=== PATIENT | female | born 1960 | race Caucasian/White ===

== ENCOUNTER 2017-12-26 13:30 | Inpatient (IN) | payer BC ==
[2018-01-07] MEDS ORDERED: METOCLOPRAMIDE 10 MG TABLET PO ONE (06:00)
[2018-01-07] MEDS ORDERED: MECLIZINE 25 MG TABLET PO ONE (06:00)
[2018-01-07] MEDS ORDERED: FAMOTIDINE 20MG TABLET PO ONE (06:00)
[2018-01-07] MEDS ORDERED: CELECOXIB 100 MG CAPSULE PO ONE (06:00)
[2018-01-07] MEDS ORDERED: CEFAZOLIN 2 Gram 2 GM/50 ML BAG IVPB ONE (06:00)
[2018-01-07] MEDS ORDERED: VANCOMYCIN HCL 1,000 MG in DEXTROSE 5 % IN WATER 250 ML IVPB ONE ×2 (06:00)
[2018-01-07 08:47] LABS: ABO GROUP O; ANTIBODY SCREEN NEGATIVE (NEGATIVE); RH TYPE POSITIVE
[2018-01-07] MEDS ORDERED: AL HYDROX/MAG HYDROX 30ML UD PO PRN (12:26)
[2018-01-07] MEDS ORDERED: DIPHENHYDRAMINE HCL 25 MG CAPSULE PO PRN (12:26)
[2018-01-07] MEDS ORDERED: ONDANSETRON HCL IV 4 MG/2 ML VIAL IVP PRN (12:26)
[2018-01-07] MEDS ORDERED: ACETAMINOPHEN W/ CODEINE 300MG/60MG TABLET PO PRN (12:26)
[2018-01-07] MEDS ORDERED: MAGNESIUM HYDROXIDE 30 ML UDC PO PRN (12:26)
[2018-01-07] MEDS ORDERED: TRAMADOL HCL 50 MG TABLET PO PRN (12:26)
[2018-01-07] MEDS ORDERED: KETOROLAC 30 MG/ML VIAL IVP PRN ×2 (12:26)
[2018-01-07] MEDS ORDERED: ZOLPIDEM TARTRATE 5 MG TABLET PO PRN (12:26)
[2018-01-07] MEDS ORDERED: HYDROMORPHONE HCL 2 MG/ML VIAL IM PRN (12:26)
[2018-01-07] MEDS ORDERED: HYDROCODONE/APAP 10/325 TABLET PO PRN ×2 (12:26)
[2018-01-07] MEDS ORDERED: ACETAMINOPHEN 325 MG TAB PO PRN (12:26)
[2018-01-07] MEDS ORDERED: NALOXONE 0.4 MG/1 ML VIAL IVP PRN (12:26)
[2018-01-07] MEDS ORDERED: BISACODYL 10 MG SUPP RC PRN (12:26)
[2018-01-07] MEDS ORDERED: LIDOCAINE 2% MDV (20MG/ML) 20ML VIAL IV ONE (14:00)
[2018-01-07] MEDS ORDERED: ONDANSETRON HCL IV 4 MG/2 ML VIAL IVP ONE (14:00)
[2018-01-07] MEDS ORDERED: HYDROMORPHONE PF 1MG/ML **AMPULE IV ONE ×2 (14:00→15:02)
[2018-01-07] MEDS ORDERED: MIDAZOLAM HCL 2MG/2ML VIAL IV ONE (14:00)
[2018-01-07] MEDS ORDERED: PROPOFOL 10 MG/ML VIAL IV ONE (14:00)
[2018-01-07] MEDS ORDERED: FENTANYL PF 100MCG/2ML VIAL IV ONE (14:00)
[2018-01-07] MEDS ORDERED: DIPHENHYDRAMINE HCL 50 MG/ML VIAL IVP ONE (14:00)
[2018-01-07] MEDS ORDERED: KETOROLAC 30 MG/ML VIAL IVP ONE (14:00)
[2018-01-07] MEDS: POTASSIUM CHLORIDE/D5-0.9%NACL 20 MEQ/1,000 ML BAG IV SCH ×2 (14:29→21:38)
[2018-01-07] MEDS ORDERED: TRANEXAMIC ACID 1,000 MG/10 ML ML IV ONE (15:00)
[2018-01-07] MEDS ORDERED: BUPIVACAINE 0.5% W/EPI MPF 30 ML VIAL IVP ONE (15:00)
[2018-01-07] MEDS: GABAPENTIN 300 MG CAPSULE PO SCH ×2 (15:40→21:36)
--- NOTE | 2018-01-07 15:51 | Rehab Evaluation ---
Patient Information - Patient Information Diagnosis: L knee DJD Ordered Treatment: PT Evaluate and Treat Status: Initial Evaluation Surgery: Yes (L TKA) Date of Surgery: 01/07/18 Past Medical/Surgical Hx: PAST MEDICAL/SURGICAL HISTORY Past Surgical History bilat CTR trigger finger bilat left breast lumpectomy benign nasal and sinus sx inj lumbar cardiac stent 2016 c scope hyst PMH - Respiratory Hx Respiratory Disorders Yes Hx Asthma No Hx Bronchitis Yes: 2 months ago Hx Chronic Obstructive No Pulmonary Disease (COPD) Hx Dyspnea No Hx Pneumonia No Hx Pulmonary Embolism No Hx Sleep Apnea No Hx Tuberculosis No Hx of CPAP No PMH - Cardiovascular Hx Cardiovascular Disorders Yes Hx Abnormal EKG Yes Hx Cardiac Catheterization Yes Hx Chest Pain No Hx Congestive Heart Failure No Hx Deep Vein Thrombosis No Hx Edema No Hx Heart Attack No Hx Hypertension No Hx Hypotension No Hx Irregular Heartbeat Yes: PVC's ? Hx Palpitations Yes Hx Pacemaker/Defibrillator No Hx Vascular Disease No Hx Coronary Stent Yes Exercise Tolerance Good Hx Transient Ischemic Attacks No (TIA) PMH - Neuro Hx Neurological Disorders Yes Hx Brain Tumor No Hx Cerebrovascular Accident No Hx Dementia No Hx Dizziness Yes: when she lays down and gets up fast Hx Headaches No Hx Neuropathy No Hx Parkinson's Disease No Hx Seizures No Hx Speech Problem No Hx Syncope No Hx Transient Ischemic Attacks No (TIA) PMH - GI Hx Gastrointestinal Disorders Yes Hx Abdominal Pain No Hx Celiac Disease No Hx Crohn's Disease No Hx Diverticulitis No Hx Gastrointestinal Bleed No Hx Gastroesophageal Reflux Yes Hx Hepatitis/Jaundice No Hx Hiatal Hernia No Hx Irritable Bowel No Hx Liver Disease No Hx Nausea/Vomiting No Hx Obstructive Bowel No Hx Pancreatitis No Hx Rectal Bleeding No Hx Ulcer No Hx Weight Loss/Weight Gain No PMH - Hx Genitourinary Disorders No Comment: s/p hyst PMH - Endocrine Hx Endocrine Disorders No Hx Diabetes No Hx Thyroid Disease No PMH - Musculoskeletal Hx Musculoskeletal Disorders Yes Hx Arthritis Yes Hx Back Injury No Hx Fibromyalgia No Hx Gout No Hx Musculoskeletal Disease No Hx Osteoporosis No PMH - Psych Hx Psychiatric Problems Yes Hx Anxiety Yes Hx Behavior Problems No Hx Depression Yes Hx Emotional Abuse No Hx Sexual Abuse No Hx Suicide Attempt No Major Depressive Episode Yes Feelings of Hopelessness No PMH - Hematology/Oncology Hx Hematology/Oncology No Disorders Premorbid Status: Detail (The patient was independent with all mobility prior to surgery.) Social History: Detail (The patient lives alone in a 2 story home, with the patient staying on the first floor. The patient's home enterance has 5 steps with 2 railings. The patient's bathroom is equipped with a tub/shower combination and a standard toilet, with no grab bars. The patient has a walker with wheels and a standard cane.) Precautions: [place], Other (WBAT on the L LE.) - Time With Patient Total Time Spent With Patient (Min): 30 Treatment Procedures: Detail (Initial Evaluation) Subjective Information - Subjective Information Per Patient (The patient had no complaints of pain.) Objective Data - Mental Status Patient Orientation: Oriented x3 - Visual Perception Appears within normal limits for therapeutic activities - ROM Not within normal limits (The patient's L knee AROM was limited s/p surgery.) - Strength/Tone Not within normal limits (The patient's L LE strength was not formally tested following surgery, however strength is functional ie: patient is able to acheive a SLR. The patient's R LE strength is generally 4+ to 5/5.) - Bed Mobility Independent (The patient is independent with supine to and from sit transfer and scooting up in bed.) - Transfers Independent (The patient is independent with sit to and from stand transfer and toilet transfer.) - Balance Balance Sitting: Good Balance Standing: Good - Sensation Intact - Gait Detail (The patient ambulated with 2 wheeled walker a distance of 60 feet x 1 with supervision for safety WBAT on the L LE.) Therapy Assessment - Therapy Assessment Detail (The patient was independent with bed mobiity, transfers and ambulated with supervision for safety only. Feel the patient will progress well with mobility.) Patient Education - Patient Education Teaching Topic: Exercise/Activity (The patient completed LE exercises including : gluteal squeezes, hamstring curls, quad sets, SLR, heel slides, and ankle pumps.) Response: Return Demonstration Teaching Method: Demonstration, Handout Teaching Recipient: Patient Barriers To Learning: None Problem List - Problem List Physical Therapy Problem List: Detail (1) Decreased L knee AROM and strength as to be expected following surgery. 2) Nonambulatory on stairs.) Goals - Goals Physical Therapy Goals: The patient will ambulate on stairs with supervision for safety. Prognosis - Prognosis Good Plan - Plan Physical Therapy Plan: PT 1-2 sessions until all inpatient PT goals have been met for gait training on stairs.
[2018-01-07] MEDS: CEFAZOLIN 2 Gram 2 GM/50 ML BAG IVPB SCH (18:17)
[2018-01-07] MEDS: DOCUSATE SODIUM 100 MG CAPSULE PO SCH (21:36)
[2018-01-07] MEDS ORDERED: PANTOPRAZOLE SODIUM 40 MG TABLET PO SCH (22:00)
[2018-01-07] MEDS ORDERED: ASPIRIN 81 MG TABEC PO SCH (22:00)
[2018-01-07] MEDS ORDERED: SERTRALINE HCL 50 MG TABLET PO SCH (22:00)
[2018-01-07] MEDS ORDERED: METOPROLOL SUCC 50 MG TABLET PO SCH (22:00)
[2018-01-08] MEDS: CEFAZOLIN 2 Gram 2 GM/50 ML BAG IVPB SCH ×2 (02:14→11:15)
[2018-01-08 06:47] LABS: HEMATOCRIT 37.9 % (35.0-47.0); HEMOGLOBIN 12.1 gm/dl (11.6-16.0)
[2018-01-08 07:06] LABS: BLOOD UREA NITROGEN 8 mg/dL (6-20); CREATININE 0.6 mg/dL (0.5-0.9); EST GLOMERULAR FILTRATION RATE > 60 mL/min; GLUCOSE,RANDOM 105 mg/dL (74-109)
[2018-01-08] MEDS: ACETAMINOPHEN W/ CODEINE 300MG/60MG TABLET PO PRN ×2 (07:23→12:59)
[2018-01-08] MEDS: GABAPENTIN 300 MG CAPSULE PO SCH (09:46)
[2018-01-08] MEDS: DOCUSATE SODIUM 100 MG CAPSULE PO SCH (09:46)
--- NOTE | 2018-01-08 09:49 | Rehab Evaluation ---
Patient Information - Patient Information Diagnosis: L knee DJD Ordered Treatment: OT Evaluate and Treat Status: Initial Evaluation Surgery: Yes (L TKA) Date of Surgery: 01/07/18 Past Medical/Surgical Hx: PAST MEDICAL/SURGICAL HISTORY Past Surgical History bilat CTR trigger finger bilat left breast lumpectomy benign nasal and sinus sx inj lumbar cardiac stent 2016 c scope hyst PMH - Respiratory Hx Respiratory Disorders Yes Hx Asthma No Hx Bronchitis Yes: 2 months ago Hx Chronic Obstructive No Pulmonary Disease (COPD) Hx Dyspnea No Hx Pneumonia No Hx Pulmonary Embolism No Hx Sleep Apnea No Hx Tuberculosis No Hx of CPAP No PMH - Cardiovascular Hx Cardiovascular Disorders Yes Hx Abnormal EKG Yes Hx Cardiac Catheterization Yes Hx Chest Pain No Hx Congestive Heart Failure No Hx Deep Vein Thrombosis No Hx Edema No Hx Heart Attack No Hx Hypertension No Hx Hypotension No Hx Irregular Heartbeat Yes: PVC's ? Hx Palpitations Yes Hx Pacemaker/Defibrillator No Hx Vascular Disease No Hx Coronary Stent Yes Exercise Tolerance Good Hx Transient Ischemic Attacks No (TIA) PMH - Neuro Hx Neurological Disorders Yes Hx Brain Tumor No Hx Cerebrovascular Accident No Hx Dementia No Hx Dizziness Yes: when she lays down and gets up fast Hx Headaches No Hx Neuropathy No Hx Parkinson's Disease No Hx Seizures No Hx Speech Problem No Hx Syncope No Hx Transient Ischemic Attacks No (TIA) PMH - GI Hx Gastrointestinal Disorders Yes Hx Abdominal Pain No Hx Celiac Disease No Hx Crohn's Disease No Hx Diverticulitis No Hx Gastrointestinal Bleed No Hx Gastroesophageal Reflux Yes Hx Hepatitis/Jaundice No Hx Hiatal Hernia No Hx Irritable Bowel No Hx Liver Disease No Hx Nausea/Vomiting No Hx Obstructive Bowel No Hx Pancreatitis No Hx Rectal Bleeding No Hx Ulcer No Hx Weight Loss/Weight Gain No PMH - Hx Genitourinary Disorders No Comment: s/p hyst PMH - Endocrine Hx Endocrine Disorders No Hx Diabetes No Hx Thyroid Disease No PMH - Musculoskeletal Hx Musculoskeletal Disorders Yes Hx Arthritis Yes Hx Back Injury No Hx Fibromyalgia No Hx Gout No Hx Musculoskeletal Disease No Hx Osteoporosis No PMH - Psych Hx Psychiatric Problems Yes Hx Anxiety Yes Hx Behavior Problems No Hx Depression Yes Hx Emotional Abuse No Hx Sexual Abuse No Hx Suicide Attempt No Major Depressive Episode Yes Feelings of Hopelessness No PMH - Hematology/Oncology Hx Hematology/Oncology No Disorders Premorbid Status: Detail (The patient was independent with all mobility, home mgmt, meal prep, laundry and ADLs prior to surgery.) Social History: Detail (The patient lives alone in a 2 story home with basement , the pt's laundry is in the basement, her bedroom and main bathroom are on the first floor. The patient's home entrance has 5 steps with 2 railings. The patient's bathroom is equipped with a tub/shower combination, no grab bars or seat and a standard toilet with no grab bars. The patient has a walker with wheels and a straight cane. Her daughter and sister are available to assist as needed.) Precautions: [place], [place], Other (WBAT on the L LE.) - Time With Patient Total Time Spent With Patient (Min): 45 Treatment Procedures: Detail (OT eval low complexity) Subjective Information - Subjective Information Per Patient Objective Data - Pain Pain Present: Yes (/) - Mental Status Patient Orientation: Oriented x3 - Visual Perception Appears within normal limits for therapeutic activities - ROM Within normal limits (Kirill UE AROM WNL) - Strength/Tone Within normal limits (Kirill UE strength WNL) - Coordination Appears within normal limits for therapeutic activities - Bed Mobility Independent (Ind with supine to sit and sit to supine.) - Transfers Independent (Ind with sit to stand from EOB, chair and toilet height.) - Balance Balance Sitting: Good Balance Standing: Good - Sensation Intact - Gait Detail (Pt ambulated in hallway with 2 wheeled walker Indly.) - ADL's/IADL's Detail (Pt educated and demonstrates learning of LE dressing techniques with exception of left shoe which she required assist with due to increased swelling. She reports her sister and daughter will be coming over throughout the day and can assist if needed. Reviewed shower and kitchen safety, pt verbalized understanding.) Therapy Assessment - Therapy Assessment Detail (Pt safe and Ind with ADLs.) Problem List - Problem List Physical Therapy Problem List: Detail (1) Decreased L knee AROM and strength as to be expected following surgery. 2) Nonambulatory on stairs.) Occupational Therapy Problem List: Detail (No current OT problems identified.) Goals - Goals Physical Therapy Goals: The patient will ambulate on stairs with supervision for safety. Occupational Therapy Goals: No current OT goals identified. Prognosis - Prognosis Good Plan - Plan Physical Therapy Plan: PT 1-2 sessions until all inpatient PT goals have been met for gait training on stairs. Occupational Therapy Plan: No further IP OT recommended. Thank you for this referral.
[2018-01-08] MEDS ORDERED: RIVAROXABAN 10 MG TABLET PO SCH (10:00)
[2018-01-08] MEDS ORDERED: FERROUS SULFATE 325 MG TAB PO SCH (10:00)
--- NOTE | 2018-01-08 10:17 | Physical Therapy Tx Note ---
Physical Therapy Tx Note - Treatment Note Tolerated: Good Total Time Spent With Patient: 20 Physical Therapy Tx Note: Detail (The patient was complaining of L knee pain this am and stiffness. The patient ambulated independently with 2 wheeled walker WBAT on the L LE a distance of 108 feet x 1. The patient ambulated on stairs with supervision for safety only using one railing, one cane. The patient was instructed to complete exercises twice a day except for ankle pumps which should be completed throughout the day. ( The patient had been doing her exercises frequently yesterday). The patient has completed all inpatient goals.) Physical Therapy Problem List: Detail (1) Decreased L knee AROM and strength as to be expected following surgery. 2) Nonambulatory on stairs.) Physical Therapy Goals: The patient will ambulate on stairs with supervision for safety.( Goal completed.) Physical Therapy Plan: The patient has completed all inpatient PT goals. The patient is discharged from inpatient PT and is to recieve Home PT.
--- NOTE | 2018-01-08 19:45 | Operative Note ---
DATE: 01/07/2018 PREOPERATIVE DIAGNOSIS: END-STAGE ARTHROSIS OF THE LEFT KNEE. POSTOPERATIVE DIAGNOSIS: END-STAGE ARTHROSIS OF THE LEFT KNEE. PROCEDURE: Cemented left total knee arthroplasty using Lyle and Nephew Norma II components with a size 4 Oxinium femur, a size 3 stemmed tibial base plate, a 9 mm lipped tibial insert, and a 32 mm all-plastic patella. STAFF SURGEON: ROD HANSON M.D. ANESTHESIA: SPINAL. PREPARATION: CHLORAPREP. INDIVIDUAL CONSIDERATIONS: NONE. PROCEDURE: The patient was taken to the Operating Room and placed supine on the operating table. She had a successful induction of a spinal anesthetic. Her left lower extremity was prepped and draped in the usual fashion. The patient had a midline approach to the knee. The limb was elevated and the tourniquet was inflated to 300 mmHg. Sharp dissection was carried down through the skin and subcutaneous tissue. Small veins were coagulated with a Bovie. A medial arthrotomy was performed. The patella was everted and the knee was flexed. The patient had exposed bone throughout. Fat pad was resected, ACL was sacrificed, provisional anterior meniscectomies were performed, and the capsule was released from the medial proximal tibia. The initial femoral ethylbenzene oxidizer hole was then made freehand. The intramedullary femoral cutting jig was placed. It was cut in 7 degrees of valgus and adjusted for rotation and secured with pins for a 10 mm resection. The initial transverse cut was then made. Skin guide was placed for the anterior and posterior ethylbenzene oxidizer holes. It was found that a size 4 would be appropriate but I had to translate it anteriorly 2 mm using a shimming block. The anterior and posterior cuts followed by chamfer cuts were made, osteophytes removed, and a size 4 trial was placed and found to fit well. The tibia was brought forward and the remainder of the meniscal remnants were removed with a Bovie. The extra-articular tibial cutting jig was placed and it was cut in neutral with a 3 degree AP slope. Care was taken to adjust for rotation and flexion using the extra-articular alignment guide and bony landmarks. It was set for a 9 mm resection, keyed off the high medial side, and secured with pins. When cutting the tibia, care was taken to preserve the PCL insertion on the tibia. Large media; osteophytes were removed and I was able to fit a size 3 baseplate trial, it adjusted for rotation, and secured with pins. With a 9 mm trial and the femoral trial, there was excellent motion and stability. Ligamentous balance, rotation, alignment were thought to be normal. The femoral ethylbenzene oxidizer holes were impacted, the triflange tibial stamp was impacted, and these trial components were removed. The patient had a thick patella. I took roughly 9 mm of bone off freehand with an oscillating saw. I could fit a 32 mm patella and the three ethylbenzene oxidizer holes were drilled. The tourniquet was let down briefly to get bleeders posteriorly then placed back up again. The knee was then thoroughly irrigated out with pulsatile Betadine and saline to remove any visual or palpable debris. Bony surfaces were then dried. A size 3 stem tibial baseplate was cemented into place, followed by impaction of the 9 mm lipped tibial insert, followed by cementing the size 4 Oxinium femur, followed by cementing in a 32 mm patella. Implant surfaces were compressed, excess cement was removed, and after the cement had set, there was excellent motion and stability. Ligamentous balance, rotation alignment, and patellofemoral tracking were normal. No lateral release was required. The tourniquet was let down and hemostasis was obtained with a Bovie. After irrigation, the skin and subcut were infiltrated with 30 mL of 0.50% Marcaine with Epinephrine. The capsule was then closed with a running #2 quill, subcut was closed in layers with running 0 quill, and the skin was closed with elzbieta. The patient did receive a gram of Tranexamic Acid IV preoperatively. I mixed a gram of Tranexamic Acid with 30 mL of saline and injected it into the knee through a sterile 18-gauge needle, and a sterile Bulkee compressive dressing was applied. The patient tolerated the procedures well. Needle and sponge counts were correct. Estimated blood loss was minimal and she was taken back to the Recovery Room in good condition. There were no complications. JOB NUMBER: [id number] [facility]
--- NOTE | 2018-01-08 20:36 | Discharge Summary ---
DATE OF ADMISSION: 01/07/2018 DATE OF DISCHARGE: 01/08/2018 DATE OF SURGERY: 01/07/2018 HISTORY: Mrs. Wilcox a delightful 57-year-old female who presents with end-stage arthrosis of her left knee. She was admitted after a left total knee arthroplasty. Postoperatively, she did well. Her discharge hemoglobin was 12.1. DISCHARGE INSTRUCTIONS: The plan is to discharge her to home in the care of her family. Home PT, Visiting Nurse has been been arranged. She will be given Tylenol #4 for pain and Xarelto for DVT prophylaxis. She will follow-up in my office in four weeks. FINAL DIAGNOSIS/PRIMARY DIAGNOSIS: END-STAGE ARTHROSIS OF THE LEFT KNEE. SECONDARY DIAGNOSIS: NONE. OPERATIONS AND PROCEDURES: Cemented left total knee arthroplasty. DISCHARGE CONDITION: GOOD. JOB NUMBER: [id number] MTDD
== END 2018-01-08 13:35 | disposition home health service (06) | DRG 470 ==
LOC: MEDSURG 01-07 07:52
PROVIDERS: ADMIT Orthopaedic Surgery; ATTEND Orthopaedic Surgery
PROC: 0SRD069 Replacement of Left Knee Joint with Oxidized Zirconium on Polyethylene Synthetic Substitute, Cemented, Open Approach (ICD-10-PCS; principal; 2018-01-07 10:00)
DX: M17.12 Unilateral primary osteoarthritis, left knee (principal); I10 Essential (primary) hypertension; K21.9 Gastro-esophageal reflux disease without esophagitis
CPT/HCPCS: 80048; 85014; 85018; 86850; 86900; 86901; 97530; J1170; J1200; J1885; J2405; J3480

== ENCOUNTER 2018-04-09 09:48 | Day surgery (SDC) | payer BC ==
[~2018-04-09 09:48] MED LIST: ACETAMINOPHEN 1,000 MG/100 ML BTL IV ONE
[2018-04-09] MEDS ORDERED: *PACU ONLY* KETAMINE HCL 10 MG/ML (20ML) VIAL IV ONE (09:49)
[2018-04-09] MEDS ORDERED: PROPOFOL 10 MG/ML VIAL IV ONE (09:49)
[2018-04-09] MEDS ORDERED: KETOROLAC 30 MG/ML VIAL IVP ONE (09:49)
[2018-04-09] MEDS ORDERED: BUPIVACAINE 0.5% W/EPI MPF 30 ML VIAL IVP ONE (09:49)
[2018-04-09] MEDS ORDERED: METHYLPREDNISOLONE 40MG/VIAL IM ONE (09:49)
--- NOTE | 2018-04-10 15:25 | Operative Note ---
DATE: 04/09/2018 PREOPERATIVE DIAGNOSIS: ARTHROFIBROSIS OF THE LEFT KNEE. POSTOPERATIVE DIAGNOSIS: ARTHROFIBROSIS OF THE LEFT KNEE. PROCEDURE: 1. LEFT KNEE MANIPULATION UNDER ANESTHESIA. 2. LEFT KNEE INJECTION. STAFF SURGEON: ROD HANSON M.D. ANESTHESIA: GENERAL. PREPARATION: CHLORAPREP. INDIVIDUAL CONSIDERATIONS: NONE. PROCEDURE: The patient was taken to the Operating Room and placed supine on the operating table. She had a successful induction with general anesthetic. I went ahead and manipulated her knee. At about 85 to 90 degrees, there was a solid endpoint. I was easily able to manipulate her to about a 125 to 130 degrees. She did have full extension. I then prepped her with ChloraPrep and then sterilely injected with 20 mL of 0.5% Marcaine with Epinephrine along with 40 mg of Depo-Medrol into the knee through a sterile #18 gauge needle and a Band -Aid was applied. She was taken back to Recovery in good condition. There were no complications. JOB NUMBER: [id number] MTDD
== END 2018-04-09 13:30 | disposition home or self-care (01) ==
LOC: SUR 09:48
PROVIDERS: ATTEND Orthopaedic Surgery
DX: M24.662 Ankylosis, left knee (principal)
CPT/HCPCS: 27570; 20610; 01380; J1885; J1030